=== PATIENT | male | born 1940 | race Caucasian/White ===

== ENCOUNTER 2021-07-30 02:34 | Outpatient (CLI) | payer MEDICARE, SELFPAY ==
--- OUTSIDE RECORDS SUMMARY | 2021-07-30 02:36 | XMS_ITS ---
:1940 Author Care Team Providers Name Role Phone SUSIE PRATT DO Primary Care Provider [phone] Allergies Code Code System Name Reaction Severity Status Onset NKDA ? Medications Name Status Start Date Stop Date ? ? amlodipine 10 mg tablet Completed 06/07/2016 06/08/20 16 1 (one) Tablet: every other day amlodipine 5 mg tablet Active ? Not avail able Take 1 tablet every day by oral route for 30 days. amoxicillin 500 mg capsule Completed ? 04/20 amoxicillin 875 mg tablet Completed 08/05/20112010 1 Tablet: bid - twice daily Augmentin 875 mg-125 mg tablet Completed ? 0 02/01/2021 Take 1 tablet every 12 hours by oral route for 7 days. azithromycin 250 mg tablet Completed ? 10/24 fluticasone propionate 50 mcg/actuation nasal spray,suspension A ctive ? Not available INSTILL 2 SPRAYS INTO EACH NOSTRIL EVERY MORNING lisinopril 40 mg tablet Active ? Not avai lable TAKE 1 TABLET BY MOUTH ONCE DAILY. metoprolol succinate ER 50 mg tablet,extended release 24 hr Acti ve ? Not available TAKE 1 TABLET BY MOUTH EVERY DAY rosuvastatin 10 mg tablet Completed ? 2020 TAKE 1 TABLET BY MOUTH EVERY OTHER DAY tamsulosin 0.4 mg capsule Active ? Not av ailable TAKE 1 CAPSULE BY MOUTH EVERY DAY Problems Name Status Onset Date Source ? Hyperlipidemia Active ? History Hypertensive Disorder Active ? History Acute Sinusitis Unknown ? History Acute Maxillary Sinusitis Unknown ? Histor y Seasonal Allergic Rhinitis Active ? Histo ry Posterior Rhinorrhea Active ? History Large Prostate Active ? History Heart Murmur Active ? History Delay When Starting to Pass Urine Active ? History Shadow of Lung Active ? History Exhaustion Due to Excessive Exertion Unknown ? History Active Immunization Unknown ? History Artificial Knee Joint Present Active ? Hi story Long-term Drug Therapy Active ? History Adult Health Examination Unknown ? History Knee Pain Active ? History Screening Procedure Unknown ? History Procedure by Method Unknown ? History Procedures Date Name Performed by ? 04/30/2015 Colonoscopy Information not avai lable Results Lab Results Date Name Specimen Result Interpretation Description Value Range Status Address ? 03/26/2021 CBC W/ Auto BLD ? Wbc 8.1 10*3/uL 5.0-10.0 F inal [place] Diff 10*3/uL [facility] (Internal) : [address] ? ? BLD ? Rbc 5.36 10*6/uL 4.60-6.00 Final N orth 10*6/uL [facility] (Internal) : [address] ? ? BLD ? Hgb 17.4 g/dL 14.0-18.0 Final Nort h g/dL [facility] (Internal) : [address] ? ? BLD ? Hct 51.0 % 41.0-51.0 Final [facility] (Internal) : [address] ? ? BLD ? Mcv 95.1 fL 80.0-96.0 Final [facility] (Internal) : [address] ? ? BLD High Mch 32.5 pg 26.0-32.0 Final [facility] (Internal) : [address] ? ? BLD ? Mchc 34.1 g/dL 31.0-35.0 Final Nort h g/dL [facility] (Internal) : [address] ? ? BLD ? Rdw 13.0 % 11.5-14.5 Final [facility] (Internal) : [address] ? ? BLD ? Plt 178 10*3/uL 130-450 Final Nort h 10*3/uL [facility] (Internal) : [address] ? ? BLD ? Anc 4.45 10*3/uL ? Final Nort h [facility] (Internal) : [address] ? ? BLD ? Nlr 1.61 0.00-3.20 Final [facility] (Internal) : [address] ? ? BLD ? Neutro 54.7 % 40.0-75.0 Final [facility] (Internal) : [address] ? ? BLD ? Lymph 34.1 % 20.0-50.0 Final [facility] (Internal) : [address] ? ? BLD ? Mclean 7.6 % 2.0-10.0 Final North % [facility] (Internal) : [address] ? ? BLD ? Eos 2.5 % 1.0-6.0 % Final [facility] (Internal) : [address] ? ? BLD ? Baso 1.0 % 0.0-1.0 % Final [facility] (Internal) : [address] ? ? BLD ? Ig 0.1 % 0.0-0.9 % Final [facility] (Internal) : [address] t 03/26/2021 CMP, Serum S ? g/r 76 mg/dL 74-106 Final North or Plasma mg/dL [facility] (Internal[facility] : [address] ? ? S ? Bun 14 mg/dL 9-20 Final [place] mg/dL [facility] (Internal) : [address] ? ? S ? Crea 0.70 mg/dL 0.66-1.25 Final Nor th mg/dL [facility] (Internal) : [address] ? ? S ? Ca 9.5 mg/dL 8.4-10.2 Final North mg/dL [facility] (Internal) : [address] ? ? S ? Na 145 mmol/L 137-145 Final North mmol/L [facility] (Internal) : [address] ? ? S ? K 3.9 mmol/L 3.5-5.1 Final [place] mmol/L [facility] (Internal) : [address] ? ? S ? Cl 106 mmol/L 98-107 Final [place] mmol/L [facility] (Internal[facility] : [address] ? ? S ? Tco2 27.0 mmol/L 22.0-30.0 Final No rth mmol/L [facility] (Internal[facility] : [address] ? ? S ? Tp 7.7 g/dL 6.3-8.2 Final North g/dL [facility] (Internal) : [address] ? ? S ? Alb 4.5 g/dL 3.5-5.0 Final [place] g/dL [facility] (Internal) : [address] ? ? S ? Tbil 0.8 mg/dL 0.2-1.3 Final [place] mg/dL [facility] (Internal) : [address] ? ? S ? Alp 61 U/L 38-126 Final [place] U/L [facility] (Internal) : [address] ? ? S Low Alt 13 U/L 21-72 U/L Final [place] (Sgpt) [facility] (Internal) : [address] ? ? S ? Ast 31 U/L 17-59 U/L Final [place] (Sgot) [facility] (Internal) : [address] 03/16/2021 CBC W/ Auto BLD ? Wbc 7.9 10*3/uL 5.0-10.0 F inal [place] Diff 10*3/uL [facility] (Internal) : [address] ? ? BLD ? Rbc 5.22 10*6/uL 4.60-6.00 Final N orth 10*6/uL [facility] ([facility] : [address] ? ? BLD ? Hgb 16.9 g/dL 14.0-18.0 Final Nort h g/dL [facility] (Internal) : [address] ? ? BLD ? Hct 49.0 % 41.0-51.0 Final [place] % [facility] (Internal) : [address] ? ? BLD ? Mcv 93.9 fL 80.0-96.0 Final [place] fL [facility] (Internal) : [address] ? ? BLD High Mch 32.4 pg 26.0-32.0 Final [place] pg [facility] (Internal) : [address] ? ? BLD ? Mchc 34.5 g/dL 31.0-35.0 Final Nort h g/dL [facility] (Internal) : [address] ? ? BLD ? Rdw 12.9 % 11.5-14.5 Final [facility] L ab (Internal) : [address] ? ? BLD ? Plt 172 10*3/uL 130-450 Final Nort h 10*3/uL [facility] (Internal) : [address] ? ? BLD ? Anc 4.95 10*3/uL ? Final Nort h [facility] (Internal) : [address] ? ? BLD ? Nlr 2.51 0.00-3.20 Final [facility] (Internal) : [address] ? ? BLD ? Neutro 62.5 % 40.0-75.0 Final [facility] (Internal) : [address] ? ? BLD ? Lymph 24.9 % 20.0-50.0 Final [facility] (Internal) : [address] ? ? BLD ? Mclean 9.1 % 2.0-10.0 Final [facility] (Internal) : [address] ? ? BLD ? Eos 2.4 % 1.0-6.0 % Final [facility] (Internal) : [address] ? ? BLD ? Baso 0.8 % 0.0-1.0 % Final [facility] (Internal) : [address] ? ? BLD ? Ig 0.3 % 0.0-0.9 % Final [facility] (Internal) : [address] 03/16/2021 CMP, Serum S ? g/r 95 mg/dL 74-106 Final North or Plasma mg/dL [facility] (Internal) : [address] ? ? S ? Bun 16 mg/dL 9-20 Final [place] mg/dL [facility] (Internal) : [address] ? ? S ? Crea 0.70 mg/dL 0.66-1.25 Final [place] mg/dL [facility] ([facility] : [address] ? ? S ? Ca 9.8 mg/dL 8.4-10.2 Final [place] mg/dL [facility] (Internal[facility] : [address] ? ? S ? Na 142 mmol/L 137-145 Final [place] mmol/L [facility] (Internal) : [address] ? ? S ? K 4.2 mmol/L 3.5-5.1 Final [place] mmol/L [facility] (Internal) : [address] ? ? S ? Cl 104 mmol/L 98-107 Final [place] mmol/L [facility] (Internal) : [address] ? ? S ? Tco2 28.0 mmol/L 22.0-30.0 Final No rth mmol/L [facility] (Internal) : [address] ? ? S ? Tp 6.9 g/dL 6.3-8.2 Final [place] g/dL [facility] (Internal) : [address] ? ? S ? Alb 4.3 g/dL 3.5-5.0 Final [place] g/dL [facility] (Internal) : [address] ? ? S ? Tbil 0.9 mg/dL 0.2-1.3 Final [place] mg/dL [facility] (Internal) : [address] ? ? S ? Alp 63 U/L 38-126 Final [place] U/L [facility] (Internal) : [address] ? ? S Low Alt 13 U/L 21-72 U/L Final [place] (Sgpt) [facility] (Internal) : [address] ? ? S ? Ast 37 U/L 17-59 U/L Final [place] (Sgot) [facility] (Internal) : [address] 03/16/2021 TSH, Serum S ? Tsh 1.25 0.47-4.68 Final North or Plasma u[IU]/mL u[IU]/mL [facility] : [address] 03/16/2021 Venipuncture Blood ? Location Left ? ? P_nc Primary venous Antecubital Care [place]: [address], [place] ? ? Blood ? Needle 21g ? ? P_nc Prim ann venous Vacutainer Care [place]: [address], [place] ? ? Blood ? Number of 1 ? ? P_nc P rimary venous Attempts Care [place]: [address], [place] ? ? Blood ? Successfu Yes ? ? P_nc P rimary venous l Care [place]: [address], [place] ? ? Blood ? Dressing Pressure ? ? P_nc Primary venous Band-aid Care Applied [place]: [address], [place] 03/05/2021 Borrelia S ? Lyme negative negative Final [place] [facility] Lab Immunoassay, (Int ernal): Serum [address] 07/21/2020 Lipid Panel, S ? Chol 183 mg/dL 50-200 Rosa Maria l [place] Serum mg/dL [facility] (Internal) : [address] ? ? S ? Trig 118 mg/dL 10-150 Final [place] mg/dL [facility] (Internal) : [address] ? ? S High Hdl 67 mg/dL 40-60 Final [place] mg/dL [facility] (Internal) : [address] ? ? S ? Ldl 92 mg/dL 0-130 Final [place] mg/dL [facility] (Internal) : [address] 06/03/2020 Lipid Panel, S ? Chol 188 mg/dL 50-200 Rosa Maria l [place] Serum mg/dL [facility] (Internal) : [address] ? ? S ? Trig 79 mg/dL 10-150 Final [place] mg/dL [facility] (Internal) : [address] ? ? S High Hdl 72 mg/dL 40-60 Final [place] mg/dL [facility] (Internal) : [address] ? ? S ? Ldl 100 mg/dL 0-130 Final [place] mg/dL [facility] (Internal) : [address] 10/30/2019 CK (Creatine S Low Cpk 38 U/L 55-170 Final North Kinase), U/L [facility] Total, Serum Hosp ital Lab (Internal) : [address] 10/30/2019 CMP, Serum S ? g/r 88 mg/dL 74-106 Final [place] or Plasma mg/dL [facility] (Internal) : [address] ? ? S ? Bun 18 mg/dL 9-20 Final [place] mg/dL [facility] (Internal) : [address] ? ? S ? Crea 0.80 mg/dL 0.66-1.25 Final Nor th mg/dL [facility] (Internal) : [address] ? ? S ? Ca 9.3 mg/dL 8.4-10.2 Final [place] mg/dL [facility] (Internal) : [address] ? ? S ? Na 140 mmol/L 137-145 Final [place] mmol/L [facility] (Internal) : [address] ? ? S ? K 4.0 mmol/L 3.5-5.1 Final [place] mmol/L [facility] (Internal) : [address] ? ? S ? Cl 103 mmol/L 98-107 Final [place] mmol/L [facility] (Internal) : [address] ? ? S ? Tco2 28.0 mmol/L 22.0-30.0 Final No rth mmol/L [facility] (Internal) : [address] ? ? S ? Tp 6.9 g/dL 6.3-8.2 Final [place] g/dL [facility] (Internal) : [address] ? ? S ? Alb 4.0 g/dL 3.5-5.0 Final [place] g/dL [facility] (Internal) : [address] ? ? S ? Tbil 0.6 mg/dL 0.2-1.3 Final [place] mg/dL [facility] (Internal) : [address] ? ? S ? Alp 67 U/L 38-126 Final [place] U/L [facility] (Internal) : [address] ? ? S Low Alt 12 U/L 21-72 U/L Final [place] (Sgpt) [facility] (Internal) : [address] ? ? S ? Ast 23 U/L 17-59 U/L Final [place] (Sgot) [facility] (Internal) : [address] 10/30/2019 CBC W/ Auto BLD ? Wbc 7.2 10*3/uL 5.0-10.0 F inal [place] Diff 10*3/uL [facility] (Internal[facility] : [address] ? ? BLD ? Rbc 5.09 10*6/uL 4.60-6.00 Final N orth 10*6/uL [facility] (Internal[facility] : [address] ? ? BLD ? Hgb 16.0 g/dL 14.0-18.0 Final Nort h g/dL [facility] (Internal) : [address] ? ? BLD ? Hct 47.3 % 41.0-51.0 Final [facility] L ab (Internal) : [address] ? ? BLD ? Mcv 92.9 fL 80.0-96.0 Final [facility] (Internal) : [address] ? ? BLD ? Mch 31.4 pg 26.0-32.0 Final [place] pg [facility] (Internal) : [address] ? ? BLD ? Mchc 33.8 g/dL 31.0-35.0 Final Nort h g/dL [facility] (Internal) : [address] ? ? BLD ? Rdw 12.3 % 11.5-14.5 Final North [facility] ab (Internal) : [address] ? ? BLD ? Plt 194 10*3/uL 130-450 Final Nort h 10*3/uL [facility] (Internal) : [address] ? ? BLD ? Anc 3.69 10*3/uL ? Final Nort h [facility] (Internal) : [address] ? ? BLD ? Neutro 51.2 % 40.0-75.0 Final [facility] (Internal) : [address] ? ? BLD ? Lymph 35.9 % 20.0-50.0 Final [facility] (Internal) : [address] ? ? BLD ? Mclean 7.8 % 2.0-10.0 Final [facility] (Internal) : [address] ? ? BLD ? Eos 3.7 % 1.0-6.0 % Final [facility] (Internal) : [address] ? ? BLD ? Baso 1.0 % 0.0-1.0 % Final [facility] (Internal) : [address] ? ? BLD ? Ig 0.4 % 0.0-0.9 % Final [facility] (Internal) : [address] 10/30/2019 Thyroid S ? Tsh 1.64 0.47-4.68 Final No rth [place], u[IU]/mL u[IU]/mL [facility] (Internal) : [address] 04/13/2018 CMP, Serum S - g/r 90 mg/dL 74-106 Final North or Plasma mg/dL [facility] (Internal) : [address] ? ? S - Bun 16 mg/dL 9-20 Final [place] mg/dL [facility] (Internal) : [address] ? ? S - Crea 0.70 mg/dL 0.66-1.25 Final Nor th mg/dL [facility] (Internal) : [address] ? ? S - Ca 9.1 mg/dL 8.4-10.2 Final [place] mg/dL [facility] (Internal) : [address] ? ? S - Na 140 mmol/L 137-145 Final [place] mmol/L [facility] (Internal) : [address] ? ? S - K 4.1 mmol/L 3.5-5.1 Final [place] mmol/L [facility] (Internal) : [address] ? ? S - Cl 105 mmol/L 98-107 Final [place] mmol/L [facility] (Internal) : [address] ? ? S - Tco2 29.0 mmol/L 22.0-30.0 Final No rth mmol/L [facility] (Internal) : [address] ? ? S - Tp 7.0 g/dL 6.3-8.2 Final [place] g/dL [facility] (Internal) : [address] ? ? S - Alb 4.3 g/dL 3.5-5.0 Final [place] g/dL [facility] (Internal) : [address] ? ? S - Tbil 0.9 mg/dL 0.2-1.3 Final [place] mg/dL [facility] (Internal) : [address] ? ? S - Alp 54 U/L 38-126 Final [place] U/L [facility] (Internal) : [address] ? ? S - Alt 21 U/L 21-72 U/L Final North (Sgpt) [facility] (Internal) : [address] ? ? S - Ast 30 U/L 17-59 U/L Final [place] (Sgot) [facility] (Internal) : [address] 04/13/2018 Lipid Panel, S - Chol 188 mg/dL 50-200 Rosa Maria l [place] Serum mg/dL [facility] (Internal) : [address] ? ? S - Trig 75 mg/dL 10-150 Final [place] mg/dL [facility] (Internal) : [address] ? ? S High Hdl 68 mg/dL 40-60 Final [place] mg/dL [facility] (Internal) : [address] ? ? S - Ldl 105 mg/dL 0-130 Final [place] mg/dL [facility] (Internal) : [address] 04/13/2018 PSA, Serum S - PSA, 0.2 NG/mL 0.0-4.0 Final North or Plasma Total NG/mL [facility] (Internal) : [address] Past Encounters 07/15/2021 Pre-surgery Evaluation; Essential Hypert ension Susie Pratt, DO: [address], [place] [address], Ph. 07/07/2021 Adult Health Examination; Hypertensive D isorder Susie Pratt, DO: [address], [place] [address], Ph. 04/14/2021 Hypertensive Disorder Susie Pratt, DO: [address], [place] [address], Ph. 03/16/2021 Malaise and Fatigue Susie Pratt, DO: [address], [place] [address], Ph. 02/09/2021 Susie Pratt, DO: [address], [place] [address], Ph. 02/01/2021 Impacted Cerumen in Right Ear; Bilateral Hearing Loss Yue Ralph, [employer]: [address] [facility] [place] [address], Ph. 06/17/2020 Adult Health Examination; Hyperlipidemia Susie Pratt, DO: [address], [place] [address], Ph. Social History Tobacco Smoking Status Never Smoker Vaccine List Vaccine Type COVID-19, mRNA, LNP-S, PF, 100 mcg/0.5 m L dose (Moderna) 09/23/2020 10/21/2020 06/28/2021 influenza, high dose seasonal 07/12/2017?0.5 mL 05/24/2018?0.5 mL 05/30/2019?0.5 mL influenza, high-dose, quadrivalent 05/20/2020 05/22/2021 influenza, seasonal, injectable 06/11/2008 08/13/2009 05/31/2010?0.5 mL 05/13/2011 influenza, seasonal, injectable, preserv ative free 05/21/2012?0.5 mL 05/22/2013?0.5 mL 05/21/2014?0.5 mL 06/12/2015?0.5 mL 06/09/2016?0.5 mL pneumococcal conjugate PCV 13 12/02/2016?0.5 mL 07/12/2017?0.5 mL pneumococcal polysaccharide PPV23 09/09/2014?0.5 mL Tdap 04/01/2011?0.5 mL Plan of Care Reminders Provider Appointments None ? ? recorded. Lab None ? ? recorded. Referral None ? ? recorded. Procedures None ? ? recorded. Surgeries None ? ? recorded. Imaging None ? ? recorded. Vitals 07/15/2021 10:00AM Follow Up 20 Height Weight BMI Blood Pressure 175.26 cm 67.54 kg 22 kg/m2 (1) 152/92 mm[H g] (2) 120/82 mm[Hg ] 07/07/2021 03:00PM AWV 20 Height Weight BMI Blood Pressure 175.26 cm 65.77 kg 21.4 kg/m2 160/94 mm[Hg] 04/14/2021 11:00AM Follow Up 20 Height Weight BMI Blood Pressure 175.26 cm 71.67 kg 23.3 kg/m2 158/98 mm[Hg] 03/16/2021 10:20AM Acute 20 Height Weight BMI Blood Pressure 175.26 cm 70.76 kg 23 kg/m2 134/84 mm[Hg] 02/01/2021 01:40PM Follow Up 20 Height Weight BMI Blood Pressure 175.26 cm 71.67 kg 23.3 kg/m2 (1) 148/84 mm[H g] (2) 126/82 mm[Hg ] 06/17/2020 12:40PM AWV 20 Height Weight BMI Blood Pressure 175.26 cm 70.76 kg 23 kg/m2 132/82 mm[Hg] 11/07/2019 09:40AM Follow Up 20 Height Weight BMI Blood Pressure 175.26 cm 73.48 kg 23.9 kg/m2 134/88 mm[Hg] 06/05/2019 12:40PM AWV 20 Height Weight BMI Blood Pressure 175.26 cm 70.76 kg 23 kg/m2 134/80 mm[Hg] 11/29/2018 09:40AM Acute 20 Height Weight BMI Blood Pressure 175.26 cm 74.39 kg 24.2 kg/m2 126/76 mm[Hg] 10/24/2018 10:00AM Acute 20 Height Weight BMI Blood Pressure 175.26 cm 73.94 kg 24.1 kg/m2 144/94 mm[Hg] 06/11/2018 02:00PM Follow Up 20 Height Weight BMI Blood Pressure 175.26 cm 71.21 kg 23.2 kg/m2 150/102 mm[Hg] 04/20/2018 02:00PM AWV 20 Height Weight BMI Blood Pressure 175.26 cm 71.21 kg 23.2 kg/m2 140/86 mm[Hg] 12/02/2016 Height Weight Blood Pressure 175.26 cm 73.48 kg 168/100 mm[Hg] 06/08/2016 Weight Blood Pressure 69.85 kg 150/88 mm[Hg] 03/29/2016 Height Weight Blood Pressure 175.26 cm 73.03 kg 140/80 mm[Hg] 12/24/2015 Weight Blood Pressure 72.72 kg 120/90 mm[Hg] 10/27/2015 Weight Blood Pressure 73.26 kg (1) 176/100 mm[Hg] (2) 154/90 mm[Hg] 04/30/2015 Height Weight Blood Pressure 175.26 cm 71.67 kg 156/96 mm[Hg] 03/03/2015 Weight Blood Pressure 71.89 kg 144/84 mm[Hg] 06/10/2013 Weight Blood Pressure 72.57 kg 118/72 mm[Hg] 02/26/2013 Height Weight Blood Pressure 172.72 cm 72.57 kg 128/76 mm[Hg] 11/26/2012 Weight Blood Pressure 73.03 kg 140/90 mm[Hg] 08/05/2011 Height Weight Blood Pressure 177.8 cm 70.76 kg 140/80 mm[Hg] 04/01/2011 Weight Blood Pressure 68.49 kg 130/80 mm[Hg] 09/15/2010 Weight Blood Pressure 72.57 kg 128/64 mm[Hg] 03/30/2010 Height Weight 177.8 cm 66.22 kg 03/15/2010 Weight Blood Pressure 68.95 kg 150/80 mm[Hg] 09/10/2009 Weight Blood Pressure 72.12 kg 140/80 mm[Hg] 04/01/2009 Weight Blood Pressure 69.4 kg 132/80 mm[Hg] 03/04/2009 Weight Blood Pressure 69.4 kg 138/88 mm[Hg] 09/09/2008 Weight Blood Pressure 73.94 kg 130/80 mm[Hg] 06/26/2008 Weight Blood Pressure 72.12 kg 136/84 mm[Hg] 02/26/2008 Weight Blood Pressure 71.44 kg 118/74 mm[Hg] 01/02/2008 Weight Blood Pressure 73.48 kg 122/74 mm[Hg] 12/12/2007 Weight Blood Pressure 73.94 kg 130/68 mm[Hg] 08/01/2007 Weight Blood Pressure 72.12 kg 118/74 mm[Hg]
--- OUTSIDE RECORDS SUMMARY | 2021-07-30 02:37 | XMS_ITS | Encounter Summary ---
:1940 Author Care Team Providers Name Role Phone Elliot Gavin DO Primary Care Provider [phone] Reason for Visit Medicare annual wellness visit- male Assessment and Plan 1. Adult health examination Health maintenance exam: Relat ively healthy person - preventive medicine discussed. Labs reviewed. No concerns re garding risk of falls, depression, home support. 2. Hypertensive disorder Blood pressure remains slightl y elevated. It goes up while he is in the office. He has whitecoat hypertension ho wever he does a good job of keeping his home readings and they are generally above 14 0/90. Trial of amlodipine. He will keep his blood pressures and let me know in a wee k's time whether is working. Does have a follow-up appointment in later June for preop for cataracts at which point we can discuss his blood pressures in more deta il and make the necessary changes as needed. ? amlodipine 5 mg tablet Discussion Note: None recorded.Patient educational handouts: No information available. Plan of Care Reminders Provider Appointments Awv 20 07/12/2022 Elliot Gavin, 2:00PM DO Lab None ? ? recorded. Referral None ? ? recorded. Procedures None ? ? recorded. Surgeries None ? ? recorded. Imaging None ? ? recorded. Medications Name Start Date ? ? amlodipine 5 mg tablet ? Take 1 tablet every day by oral route for 30 days. fluticasone propionate 50 mcg/actuation nasal spray,ca spension ? INSTILL 2 SPRAYS INTO EACH NOSTRIL EVERY MORNING lisinopril 40 mg tablet ? TAKE 1 TABLET BY MOUTH ONCE DAILY. metoprolol succinate ER 50 mg tablet,extended release 24 hr ? TAKE 1 TABLET BY MOUTH EVERY DAY tamsulosin 0.4 mg capsule ? TAKE 1 CAPSULE BY MOUTH EVERY DAY Medications Administered None recorded. Vitals Height Weight BMI Blood Pressure 5 ft 9 in 144 lbs 16 oz 21.4 kg/m2 160/94 mm[Hg] Results Lab Results None recorded. Allergies Code Code System Name Reaction Severity Onset NKDA ? ? ? Problems Name Status Onset Date Source ? Hyperlipidemia Active ? History Hypertensive Disorder Active ? History Seasonal Allergic Rhinitis Active ? Histo ry Posterior Rhinorrhea Active ? History Large Prostate Active ? History Heart Murmur Active ? History Delay When Starting to Pass Urine Active ? History Shadow of Lung Active ? History Artificial Knee Joint Present Active ? Hi story Long-term Drug Therapy Active ? History Knee Pain Active ? History Procedures Date Name Performed by ? 04/30/2015 Colonoscopy Information not avai lable Vaccine List Vaccine Type COVID-19, mRNA, LNP-S, [...] polysaccharide PPV23 09/09/2014?0.5 mL Tdap 04/01/2011?0.5 mL Social History Tobacco Smoking Status Never Smoker What was the date of your most recent tobacco screening? 02/2021 What is your code status? 0 Functional Status Unknown. Past Encounters 07/07/2021 Adult Health Examination; Hypertensive Caro morserder Elliot Gavin, DO: [address] [facility], [place] [address], Ph. History of Present Illness ? Medicare Annual Wellness Vis it_ Reported By: Patient Social/Behavioral History: Diet and Nutrition: healthy diet. Fracture Risk: no sudden unexplained fractures. Physi fam Activity: exercises on a regular basis, good physical condition Mental Status:: Depression Risk: no sleep di sturbances or insomnia, loss of energy. Orientation: no d isorientation to time, no disorientation to date, no d isorientation to place. Concentration and Memory: no decreased concentrating ability, does not forget wor ds. Speech/Motor difficulties: no speech difficulties, no d ifficulty writing/copying Functional Ability: Hearing: wears hearing aids. Vision: no vision problems. Activities of Daily Living: able to bathe with limited or no assistance, able to conto l urination and bowels, able to dress with limited or no assistance, able to feed self with limited or no assistanc e, able to get out of chair or bed with limited or no angela tance, able to groom with limited or no assistance, ab le to toilet with limited or no assistance. Instrumental Activities of Daily Living: able to do house work with l imited or no assistance, able to grocery shop with limited or no assistance, able to manage medications with limi corey or no assistance, able to manage money with limited or no assistance, able to prepare meals with limited o r no assistance, able to use the phone with limited or no assistance. Falls Risk Assessment: no fall in the p ast year, no dizziness/vertigo. Home Safe ty: working smoke/CO detectors, use of seatbelts Review of Systems ? Comprehensive General Adult ROS Reported By: Patient Eyes: Eyes: no dry eyes, no irrita tion ENMT: Mouth/Throat: no sore throat , no oral abnormalities Cardiovascular: Cardiovascular: no chest jacob n, no shortness of breath when walking, no shortness of frances ath when lying down, no palpitations Respiratory: Respiratory: no cough, no wh eezing, no shortness of breath Gastrointestinal: Gastrointestinal: no abdomin al pain, no constipation, no diarrhea, no GERD Genitourinary: Genitourinary: no incontinen ce, no difficulty urinating, no increased frequency Musculoskeletal: Musculoskeletal: no arthralg ias/joint pain, no back pain, no swelling in the extremities Integumentary: Skin: no rashes, no change i n skin color Neurologic: Neurologic: no numbness, no headaches Psychiatric: Psych: no depression, no anx iety, no memory loss, no agitation Endocrine: Endocrine: no fatigue Hematologic/Lymphatic: Hematologic/Lymphatic no swo llen glands, no anemia Allergic/Immunologic: Allergy/Immunologic: no sinu s pressure, no itching, no hives Physical Exam ? Comprehensive PE (male) Reported By: Patient Constitutional: General Appearance: healthy- appearing, well-nourished, well-developed. Level of Dis tress: no apparent distress. Ambulation: ambulating gutierrez lly Head: Head: normocephalic, atrauma tic Eyes: Pupils & Irises: PERRLA: bot h. Extraocular Movement: intact left eye, intact right eye. Visio n: peripheral vision grossly intact, acuity grossly intact ENMT: Ears: no lesions on external left ear, no lesions on external right ear, left external auditory canal clear, right external auditory canal clear, left tympanic m embrane clear, right tympanic membrane clear. Hearing: no hearing l oss right ear, no hearing loss left ear, Rivera's test left ear n ormal, Rivera's test right ear normal, Rinne's test normal . Nose: no lesions on external nose, nares patent, no septal deviation, no sinus tenderness, no nasal discharge. Lips, Teeth, and Gums: no mouth or lip ulcers, no bleeding gums, normal dentit ion. Oropharynx: moist mucous membranes, no erythema, no e xudates, tonsils not enlarged Neck: Neck: supple, trachea midlin e, no masses, full range of motion. Thyroid: no enlargement, sym metrical, non-tender, no palpable nodes Respiratory: Respiratory effort: unlabore d respirations, no use of accessory muscles. RUL Auscultation: b reath sounds normal, good air movement, clear to auscultation except as noted, no wheezing, no rales/crackles, no rhonchi. RLL Auscultation: breath sounds normal, good air movement, clear to auscultation except as noted, no wheezing, no rales/crackles, no rhonchi. RON Auscultation: breath sounds normal, good air move ment, clear to auscultation except as noted, no wheezing, no rales /crackles, no rhonchi. LLL Auscultation: breath sounds normal, good air movement, clear to auscultation except as noted , no wheezing, no rales/crackles, no rhonchi Cardiovascular: Apical Impulse: not displace d. Heart Auscultation: regular rate and rhythm (RRR), normal S1, nor mal S2, no murmurs, no rubs, no gallops. Neck vessels: no ca rotid bruits. Pulses including femoral / pedal: normal throughout Lymphatic: Palpation: no axillary lymph adenopathy on the left, no axillary lymphadenopathy on the right , no cervical lymphadenopathy on the left, no cervical lymphadeno jesse on the right, no supraclavicular lymphadenopathy on the left, no supraclavicular lymphadenopathy on the right, no inguinal lymph adenopathy on the left, no inguinal lymphadenopathy on the right Musculoskeletal:: Gait and Station: normal gai t, normal station. Motor Strength and Tone: normal tone. Joints, B ones, and Muscles: normal movement of all extremities, no contract ures, no bony abnormalities, no malalignment, no tenderness, no joint erythema, no joint edema. Extremities: no edema. Thora columbar Appearance: normal curvature Skin: Inspection and palpation: no rash. Nails: normal Neurologic: Orientation: oriented to per son, place, time and situation. Memory: recent memory normal, remote memory normal. Cranial Nerves: 2-12 grossly intact. Sensation: g rossly intact, monofilament test intact. Reflexes: deep tendo n reflexes (DTRs) 2+bilaterally. Coordination and Cerebellum: [id number]-[id number] intact, no tremor, negative Romberg Psychiatric: Insight: good insight, good judgment. Mental Status: normal mood, normal affect Notes: <div>
</div>
--- OUTSIDE RECORDS SUMMARY | 2021-07-30 02:37 | XMS_ITS | Encounter Summary ---
:1940 Author Care Team Providers Name Role Phone Elliot Leslye BILLINGS Primary Care Provider [phone] Reason for Visit pre-op check Assessment and Plan 1. Pre-surgery evaluation Healthy elderly male who is at low cardiac and respiratory risk and so should proceed with cataract surgery. 2. Essential hypertension Improved with 5 mgs of amlodip ine- he will double and to 10 mgs , keep bp logs and call with results. Discussion Note: None recorded.Patient educational handouts: No information available. Plan of Care Reminders Provider Appointments Awv 20 07/12/2022 Elliot Darden Gavin, 2:00PM DO Lab None ? ? [...] BMI Blood Pressure 5 ft 9 in 148 lbs 14.36 oz 22 kg/m2 (1) 152/92 mm [Hg] (2) 120/82 mm[Hg ] Results Lab Results None recorded. Allergies Code [...] status? 0 Functional Status Unknown. Past Encounters 07/15/2021 Pre-surgery Evaluation; Essential Hypert ension Elliot Gavin, DO: [address] [place] [address], Ph. 07/07/2021 Adult Health Examination; Hypertensive D isorder Elliot Gavin, DO: [address] [facility], [place] [address], Ph. History of Present Illness ? Pre-Op Reported By: Patient HPI: Surgery to be Performed: ; C ataract surgery. Context/Condition Being Addressed: ; Eyesight. Locat ion: ; Dr. Limon on 07/30 and 08/09 2021. Risk Factors no frailty, abl e to climb a flight of stairs (exercise capacity>4 METS), non-smoker , no alcohol misuse, not obese. Anesthesia hx: no hx of anesthesia comp lications, no allergy to anesthetic agents, no family history of anesthe kenia complications. Functional Ability: able to walk up stairs, able to p erform heavy work around the house, no difficulty walking up hills, able to walk 4 mph. Post-Op Support: adequate assistance at home Review of Systems ? Comprehensive General Adult [...] n reflexes (DTRs) 2+bilaterally. Coordination and Cerebellum: uorirw-oo-xipu intact, no tremor, negative Romberg Psychiatric: Insight: good insight, good judgment. Mental Status: normal mood, normal affect Notes: <div>
</div>
[2021-07-30 12:23] LABS: Source Nasal/Nares
[2021-07-30 15:14] LABS: COVID-19 PCR Negative (Negative)
== END 2021-07-30 02:35 | disposition home or self-care (01) ==
LOC: LBO 02:34
PROVIDERS: PCP Neuromusculoskeletal Medicine & OMM; Visit Provider Ophthalmology
DX: Z20.822 Contact with and (suspected) exposure to COVID-19 (principal)
CPT/HCPCS: 87635

== ENCOUNTER 2021-08-02 09:35 | Day surgery (SDC) | payer MEDICARE, SELFPAY ==
[2021-08-02 10:02] VITALS: BP 147/86; PULSE 60; RESP 16; TEMP 36.3; O2SAT 98
[2021-08-02] MEDS: Tropicam./Phenyleph. (1/2.5%) 5 ML BTL OD ×3 (10:15→10:34)
--- NOTE | 2021-08-02 10:29 | W.ANESPRE ---
General Info Date of Service Date Performed: 08/02/21 Height: 5 ft 9 in Weight: 64.4 kg Body Mass Index (BMI): 20.9 Surgical Procedure: Operation Date: 08/02/21 12:40 Proposed Procedures Side Surgeon p Cataract Extraction with IOL Implant Right Forrest Limon MD Meds Allergies and Home Medications Allergies Allergy/AdvReac Type Severity Reaction Status Date / Time No Known Allergies Allergy Unverified 08/02/21 10:13 Home Medication Medication Instructions Recorded amlodipine 5 mg PO DAILY 07/30/21 fluticasone propionate 2 spray INTRANASAL QAM 07/30/21 lisinopril 40 mg PO DAILY 07/30/21 metoprolol succinate 50 mg PO DAILY 07/30/21 tamsulosin 0.4 mg PO DAILY 07/30/21 aspirin 81 mg PO DAILY 08/02/21 Current Visit Medications: Current Medications Generic Name Dose Route Start Last Admin Trade Name Freq PRN Reason Stop Dose Admin Acetaminophen 1,000 mg 08/02/21 06:00 Acetaminophen 500 Mg Tab PO Q4H PRN PRN Miscellaneous Medication 0 ml 08/02/21 06:00 Prednisolone 1%, Moxifloxacin 0.5%, Nepafenac 0.1% 5ml Btl OD DIRECTED LEONARD Miscellaneous Medication 0 ml 08/02/21 06:00 08/02/21 10:23 Tropicam./Phenyleph. (1/2.5%) 5 Ml Btl OD 1 drp DIRECTED LEONARD Administration Tetracaine HCl 0 ml 08/02/21 06:00 Tetracaine 0.5% 4 Ml Btl OD DIRECTED LEONARD PFSH Active Problems Active Problems: Problem Status Onset Code Cortical cataract of left eye H26.9 Nuclear sclerotic cataract of right eye H25.11 Nuclear sclerotic cataract of left eye H25.12 Medical History Active Problem List (Updated 08/02/21 @ 10:22 by Cheryle Burden) Cortical cataract of left eye (Acute) Nuclear sclerotic cataract of right eye (Acute) Nuclear sclerotic cataract of left eye (Acute) Medical History (Updated 08/02/21 @ 10:22 by Cheryle Burden) Enlarged prostate Heart murmur Hx of essential hypertension Knee pain Shadow of lung Urinary hesitancy Surgical History Surgical History Artificial knee joint present History of open reduction and internal fixation (ORIF) procedure right elbow Hx of colonoscopy Hx of tonsillectomy Hx of total knee replacement Tobacco Smoking/Tobacco Use Status: Never Alcohol Alcohol Intake: current Alcohol intake frequency: 0-2 drinks per day Alcohol type: wine Substance Use Substance use: Never Substance use type: does not use Vital Signs and Lab Results Vital Signs Most Recent Vital Signs in EMR: Most Recent Vital Signs Temp Pulse Resp BP Pulse Ox 36.3 C L 60 16 147/86 H 98 08/02/21 10:02 08/02/21 10:02 08/02/21 10:02 08/02/21 10:02 08/02/21 10:02 Lab Results Blood Type / Crossmatch: No Data to Display Complete Blood Count: No Data to Display Complete Metabolic Panel: No Data to Display Liver Function Panel: No Data to Display Coagulation Panel: No Data to Display Cardiac Panel: No Data to Display Arterial Blood Gas: No Data to Display Venous Blood Gas: No Data to Display Pancreas Panel: No Data to Display Thyroid Panel: No Data to Display Infectious Disease: Coronavirus (COVID-19)(PCR) Negative (Negative) 07/30/21 10:23 07/30/21 Coronavirus 2019 Source Nasal/Nares 07/30/21 10:23 07/30/21 Blood Cultures: No Data to Display Toxicology Panel: No Data to Display Anesthesia Assessment and Plan Anesthesia History Personal History: No History of Anesthesia Complications Family History: No Family History of Anesthesia Complications Exercise Tolerance Exercise Tolerance: Metabolic Equivalents>4 Pertinent Negatives Pertinent Negatives: No Symptoms of GERD, No Major Cardiovascular Symptoms or Complaints, No Major Pulmonary Symptoms or Complaints and No History of CVA/TIA Cardiac & Pulmonary Exam Cardiac Exam: Normal S1/S2 Heart Sounds Pulmonary Exam: Clear Bilateral Breath Sounds Implantable Cardiac Device Does patient have a Pacemaker or an ICD?: No Airway Exam Known Difficult Airway: No Mallampati Class: 3 Mouth Opening: Normal (> 3cm) Thyromental Distance: Greater than 3 cm Neck Range of Motion: Full ROM Neck Circumference: Normal Teeth Condition: Generalized Poor Dentition Airway Comments: No loose teeth ASA Classification ASA Score: ASA 2 Emergency Case?: No NPO Status NPO Status: NPO Clears >2 hours, Solids >8 hours Anesthesia Plan Resuscitation Status: Full Code Anesthesia Technique: MAC Anesthesia Airway Planned: Natural Airway Monitors Used: Standard Monitors
[2021-08-02 10:31] VITALS: BMI 20.9
[2021-08-02] MEDS: Lidocaine 2% Jelly 6 ML SYR (10:47)
[2021-08-02] MEDS: Tetracaine 0.5% 4 ML BTL OD (10:47)
[2021-08-02] MEDS: Povidone-Iodine Ophth 30 ML BTL (10:47)
[2021-08-02] MEDS: Balanced Salt Soln.-PLUS 500 ML BAG (10:59)
[2021-08-02] MEDS: Duovisc Viscoelastic System EACH 1 EACH (11:00)
--- NOTE | 2021-08-02 11:15 | PDOC.DSDIS_ITS ---
Discharge Plan Disposition Patient Disposition: HOME Condition: Good Discharge Details Attending Provider: Forrest Limon Primary Care Provider: Elliot Gavin [place] Meds and New Rx's Prescriptions: No Action metoprolol succinate 50 mg Tablet Extended Release 24 Hr 50 mg PO DAILY RF: 0 amlodipine 5 mg Tablet 5 mg PO DAILY RF: 0 tamsulosin 0.4 mg Capsule 0.4 mg PO DAILY RF: 0 lisinopril 40 mg Tablet 40 mg PO DAILY RF: 0 fluticasone propionate 50 mcg/actuation [place],Suspension 2 spray INTRANASAL QAM RF: 0 aspirin 81 mg Tablet 81 mg PO DAILY RF: 0 Discharge Instructions Stand Alone Forms: Post-op Topical Cataract, Karla Orozco (DSU) Discharge Orders Discharge Orders: Discharge Order (Routine); Ordered 08/02/21 Ordered By: Forrest Limon DS: Diagnosis Discharge Diagnosis (1) Nuclear sclerotic cataract of right eye: Status: Resolved (2) Cortical cataract of right eye: Status: Resolved
[2021-08-02 11:16] VITALS: BP 116/74; PULSE 55; RESP 16; TEMP 36.4; O2SAT 97
--- NOTE | 2021-08-02 11:16 | ROE_ITS ---
Date of service: 08/02/21 Time of Service: 11:16 Operative Note Operative Note DATE OF PROCEDURE: 08/02/21 PRE-OP DIAGNOSIS: Nuclear/cortical cataract, right eye High myopia, right eye POST-OP DIAGNOSIS: same PROCEDURE: Cataract extraction using phacoemulsification with intraocular lens implant, right eye SURGEON: Forrest Limon ANESTHESIA TYPE: Local By Surgeon and MAC Refer to Anesthesia Record ESTIMATED BLOOD LOSS: 0 PATHOLOGY: none sent COMPLICATIONS: None Patient was transported to: same day Patient's condition: stable Implants: Chad & Chad/DARRYL Tecnis [id number] Indications: Progressive visual loss due to cataract, right eye Procedure Description: CATARACT SURGERY OPERATIVE REPORT PREOPERATIVE DIAGNOSIS: 1. Nuclear/cortical cataract, right eye 2. High myopia, right eye POSTOPERATIVE DIAGNOSIS: Same OPERATION: 1. Cataract extraction using phacoemulsification with posterior chamber intraocular lens implant, right eye. IOL: IOL Supervisor Pipelines/Model: Chad & Chad / DARRYL Tecnis [id number] IOL Power: + 8.0 diopters IOL Serial Number: [id number] Optic Diameter: 6.0mm Haptic/Overall Diameter: 13.0mm PHACO INFO: [employer]ion Vision System with OZil and Active Fluidics Cumulative Dispersed Energy (CDE): 11.36 seconds SURGEON: Forrest Limon MD, COLT ANESTHESIA: Monitored Anesthesia Care (MAC), with local sub-tenon's anesthetic infiltration COMPLICATIONS: None SPECIMENS: None INDICATIONS FOR PROCEDURE: The patient is a 81-year-old gentleman with history of high myopia who has developed a symptomatic nuclear/cortical cataract of the right eye. The option of cataract surgery was offered to the patient and he felt he was symptomatic enough that he wished to proceed. PROCEDURE: The correct surgical eye was identified and marked as the right eye and the pupil was dilated in the preoperative area using mydriatics and cycloplegics. The dilated pupil size was 8.0 mm. He elected to proceed without oral sedation. The patient was brought to the operating room where cardiopulmonary monitoring was instituted and surgical time-out was performed, confirming the correct operative eye and IOL power. Topical anesthesia was administered and ophthalmic povidone-iodine 5% was instilled into the conjunctival fornices. Lidocaine gel was applied to the cornea and the tram-ocular area was prepped with Betadine 10% solution and draped in the usual sterile fashion for intraocular surgery, including an aperture drape. A Tegaderm transparent film dressing was cut in half and used to cover the lashes and lid margins. Care was taken to sequester the lashes and lid margins under the Tegaderm dressing. A lid speculum was placed between the lids of the operative eye and the Charles-Sudhir operating microscope was maneuvered into position. Valeriano scissors were then used to make a conjunctival buttonhole approximately 6mm posterior to the limbus in the inferonasal quadrant. Blunt dissection was carried out to expose bare sclera, and a blunt-tipped sub-tenon?s anesthesia cannula was introduced and passed posteriorly along the globe where non- preserved plain lidocaine was injected into posterior sub-Tenon?s space. A sideport knife was used to make a paracentesis port inferotemporally. Intraocular phenylephrine/lidocaine was injected into the anterior chamber. The anterior chamber was filled with viscoelastic. A 2.4mm keratome knife was used to create a half-thickness groove at the limbus and then to construct a three- plane near-clear corneal tunnel extending 2.0mm into clear cornea superiortemporally. A flap was raised on the anterior capsule and capsulorhexis forceps were used to complete a continuous curvilinear capsulorhexis of 5.5 mm. The capsule was noted to be extremely thin with a deep anterior chamber. Balanced salt solution was then used to perform cortical cleaving hydrodissection and nuclear hydrodelineation until the lens could be freely rotated within the capsular bag. The lens nucleus was then disassembled and removed within the capsular bag and iris plane using phacoemulsification. Residual cortical material was removed using the I/A handpiece. The posterior capsule was carefully polished to remove as much residual lens epithelial cells as safely possible. The capsular bag was then inflated and the anterior chamber deepened with viscoelastic. The lens implant described above was inserted into the capsular bag using the DARRYL [place] Injector. A Kuglen hook was used to dial the IOL into position. Residual viscoelastic was then removed first from posterior to the IOL, then from the anterior chamber using the I/A handpiece. The lens implant was noted to center nicely within the capsular bag. The incisions were stromally hydrated, and the anterior chamber was reformed using BSS. Then 0.5cc of moxifloxacin 1.0mg/ml were injected into the capsular bag and anterior chamber. The incisions were checked with a Weck spear and found to be secure. Several drops of ophthalmic povidone-iodine 5% were then applied to the eye followed by two drops of Imprimis combination prednisolone/moxifloxacin/nepafenac solution. The drapes were removed and a clear plastic protective eye shield was placed over the eye. The patient was then returned to Same Day Surgery in stable condition.
--- NOTE | 2021-08-02 11:36 | W.ANESPOSTOP ---
Postoperative Evaluation Date, Time and Location Date Performed: 08/02/21 Time Performed: 11:36 Patient Location: Day Surgery Unit Vital Signs Most Recent Imported Vital Signs: Most Recent Vital Signs Temp Pulse Resp BP Pulse Ox 36.4 C L 55 L 16 116/74 97 08/02/21 11:16 08/02/21 11:16 08/02/21 11:16 08/02/21 11:16 08/02/21 11:16 Pain Score Most Recent Pain Score: Most Recent Pain Score Pain Level 0 08/02/21 11:16 Assessment Mental Status: Awake (Alert & Oriented to Patient Baseline) Airway and Respiratory Function: Patent airway with normal (patient baseline) respiratory exam Cardiovascular Function: Hemodynamically Stable Hydration Status: Adequately Hydrated Nausea & Vomiting: No Nausea or Vomiting Pain: Pt. Denies Any Pain Peripheral Nerve Block: Patient did not receive a nerve block
== END 2021-08-02 12:37 | disposition home or self-care (01) ==
PROVIDERS: PCP Neuromusculoskeletal Medicine & OMM; Visit Provider Ophthalmology
PROC: (CPT 66984; principal; 2021-08-02 12:30)
DX: H25.11 Age-related nuclear cataract, right eye (principal); I10 Essential (primary) hypertension; N40.0 Benign prostatic hyperplasia without lower urinary tract symptoms
CPT/HCPCS: 66984; V2632

== ENCOUNTER 2021-08-06 10:44 | Outpatient (CLI) | payer MEDICARE, SELFPAY ==
[2021-08-06 15:14] LABS: Source Nasal/Nares
[2021-08-07 00:36] LABS: COVID-19 PCR Negative (Negative)
== END 2021-08-06 10:45 | disposition home or self-care (01) ==
LOC: LBO 10:45
PROVIDERS: PCP Neuromusculoskeletal Medicine & OMM; Visit Provider Ophthalmology
DX: Z20.822 Contact with and (suspected) exposure to COVID-19 (principal); Z01.818 Encounter for other preprocedural examination
CPT/HCPCS: 87635

== ENCOUNTER 2021-08-09 08:46 | Day surgery (SDC) | payer MEDICARE, SELFPAY ==
[2021-08-09 09:14] VITALS: BP 139/86; PULSE 47; RESP 16; TEMP 36.5; O2SAT 99
[2021-08-09] MEDS: Tropicam./Phenyleph. (1/2.5%) 5 ML BTL OS ×3 (09:24→09:35)
--- NOTE | 2021-08-09 09:46 | W.ANESPRE ---
General Info Date of Service Date Performed: 08/09/21 Height: 5 ft 9 in Weight: 66.3 kg Body Mass Index (BMI): 21.6 Surgical Procedure: Operation Date: 08/09/21 11:40 Proposed Procedures Side Surgeon p Cataract Extraction with IOL Implant Left Forrest Limon MD Meds Allergies and Home Medications Allergies Allergy/AdvReac Type Severity Reaction Status Date / Time No Known Allergies Allergy Unverified 08/09/21 09:20 Home Medication Medication Instructions Recorded amlodipine 5 mg PO DAILY 07/30/21 fluticasone propionate 2 spray INTRANASAL QAM 07/30/21 lisinopril 40 mg PO DAILY 07/30/21 metoprolol succinate 50 mg PO DAILY 07/30/21 tamsulosin 0.4 mg PO DAILY 07/30/21 aspirin 81 mg PO DAILY 08/02/21 Current Visit Medications: Current Medications Generic Name Dose Route Start Last Admin Trade Name Freq PRN Reason Stop Dose Admin Acetaminophen 1,000 mg 08/09/21 06:00 Acetaminophen 500 Mg Tab PO Q4H PRN PRN Miscellaneous Medication 0 ml 08/09/21 06:00 Prednisolone 1%, Moxifloxacin 0.5%, Nepafenac 0.1% 5ml Btl OS DIRECTED LEONARD Miscellaneous Medication 0 ml 08/09/21 06:00 08/09/21 09:35 Tropicam./Phenyleph. 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.11 Nuclear sclerotic cataract of left eye H25.12 Cortical cataract of right eye H26.9 Medical History Medical History Enlarged prostate Heart murmur Hx of essential hypertension Knee pain Shadow of lung Urinary hesitancy Surgical History Surgical History Artificial knee joint present History of open reduction and internal fixation (ORIF) procedure right elbow Hx of cataract surgery Hx of colonoscopy Hx of tonsillectomy Hx of total knee replacement Tobacco Smoking/Tobacco Use Status: Never Alcohol Alcohol Intake: current Alcohol intake frequency: 0-2 drinks per day Alcohol type: wine Substance Use Substance use: Never Substance use type: does not use Vital Signs and Lab Results Vital Signs Most Recent Vital Signs in EMR: Most Recent Vital Signs Temp Pulse Resp BP Pulse Ox 36.5 C 47 L 16 139/86 99 08/09/21 09:14 08/09/21 09:14 08/09/21 09:14 08/09/21 09:14 08/09/21 09:14 Lab Results Blood Type / Crossmatch: No Data to Display Complete Blood Count: No Data to Display Complete Metabolic Panel: No Data to Display Liver Function Panel: No Data to Display Coagulation Panel: No Data to Display Cardiac Panel: No Data to Display Arterial Blood Gas: No Data to Display Venous Blood Gas: No Data to Display Pancreas Panel: No Data to Display Thyroid Panel: No Data to Display Infectious Disease: Coronavirus (COVID-19)(PCR) Negative (Negative) 08/06/21 10:42 08/06/21 Coronavirus 2019 Source Nasal/Nares 08/06/21 10:42 08/06/21 Blood Cultures: No Data to Display Toxicology Panel: No Data to Display Anesthesia Assessment and Plan Anesthesia History Personal History: No History of Anesthesia Complications Family History: No Family History of Anesthesia Complications Exercise Tolerance Exercise Tolerance: Metabolic Equivalents>4 Pertinent Negatives Pertinent Negatives: No Symptoms of GERD Cardiac & Pulmonary Exam Cardiac Exam: Normal S1/S2 Heart Sounds Pulmonary Exam: Clear Bilateral Breath Sounds Implantable Cardiac Device Does patient have a Pacemaker or an ICD?: No Airway Exam Known Difficult Airway: No Mallampati Class: 3 Mouth Opening: Normal (> 3cm) Thyromental Distance: Greater than 3 cm Neck Range of Motion: Full ROM Neck Circumference: Normal Teeth Condition: Generalized Poor Dentition Airway Comments: No loose teeth ASA Classification ASA Score: ASA 2 Emergency Case?: No NPO Status NPO Status: NPO Clears >2 hours, Solids >8 hours Anesthesia Plan Resuscitation Status: Full Code Anesthesia Technique: MAC Anesthesia Airway Planned: Natural Airway Monitors Used: Standard Monitors
[2021-08-09 09:48] VITALS: BMI 21.6
[2021-08-09] MEDS: Tetracaine 0.5% 4 ML BTL OS (10:29)
[2021-08-09] MEDS: Balanced Salt Soln.-PLUS 500 ML BAG (10:30)
[2021-08-09] MEDS: Duovisc Viscoelastic System EACH 1 EACH (10:30)
[2021-08-09] MEDS: Lidocaine 2% Jelly 6 ML SYR (10:31)
[2021-08-09] MEDS: Povidone-Iodine Ophth 30 ML BTL (10:32)
[2021-08-09 10:49] VITALS: BP 130/70; PULSE 52; RESP 16; TEMP 36.1; O2SAT 99
--- NOTE | 2021-08-09 10:52 | PDOC.DSDIS_ITS ---
Discharge Plan Disposition Patient Disposition: HOME Condition: Good Discharge Details Attending Provider: Forrest Limon Primary Care Provider: Elliot Gavin [place] Meds and New Rx's Prescriptions: No Action metoprolol succinate 50 mg Tablet Extended Release 24 Hr 50 mg PO DAILY RF: 0 amlodipine 5 mg Tablet 5 mg PO DAILY RF: 0 tamsulosin 0.4 mg Capsule 0.4 mg PO DAILY RF: 0 lisinopril 40 mg Tablet 40 mg PO DAILY RF: 0 fluticasone propionate 50 mcg/actuation [place],Suspension 2 spray INTRANASAL QAM RF: 0 aspirin 81 mg Tablet 81 mg PO DAILY RF: 0 Discharge Instructions Stand Alone Forms: Post-op Topical Cataract, Karla Orozco (DSU) Discharge Orders Discharge Orders: Discharge Order (Routine); Ordered 08/09/21 Ordered By: Forrest Limon DS: Diagnosis Discharge Diagnosis (1) Cortical cataract of left eye: Status: Resolved (2) Nuclear sclerotic cataract of left eye: Status: Resolved
--- NOTE | 2021-08-09 10:53 | W.PM.OP ---
Date of service: 08/09/21 Time of Service: 10:53 Operative Note Operative Note DATE OF PROCEDURE: 08/09/21 PRE-OP DIAGNOSIS: Nuclear/cortical cataract, left eye POST-OP DIAGNOSIS: same PROCEDURE: Cataract extraction using phacoemulsification with intraocular lens implant, left eye SURGEON: Forrest Limon ANESTHESIA TYPE: Local By Surgeon and MAC Refer to Anesthesia Record PATHOLOGY: none sent COMPLICATIONS: None Patient was transported to: same day Patient's condition: stable Implants: [employer] / [employer] Tecnis [id number] Indications: Progressive decreased vision due to cataract, left eye Procedure Description: CATARACT SURGERY OPERATIVE REPORT PREOPERATIVE DIAGNOSIS: 1. Nuclear/cortical cataract, left eye POSTOPERATIVE DIAGNOSIS: Same OPERATION: 1. Cataract extraction using phacoemulsification with posterior chamber intraocular lens implant, left eye. IOL: IOL Parasitologist/Model: [employer] Chad / DARRYL Tecnis [id number] IOL Power: + 10.0 diopters IOL Serial Number: [id number] Optic Diameter: 6.0 mm Haptic/Overall Diameter: 13.0 mm PHACO INFO: [employer] Vision System with OZil and [employer] Cumulative Dispersed Energy (CDE): 8.74 seconds SURGEON: Forrest Limon MD, COLT ANESTHESIA: Monitored A [facility] (MAC), with local sub-tenon's anesthetic infiltration COMPLICATIONS: None SPECIMENS: None INDICATIONS FOR PROCEDURE: The patient is an 81-year-old gentleman with history of diminished visual acuity in both eyes secondary to the development of bilateral cataract. He has already undergone cataract surgery in the right eye and is doing well postoperatively. He now presents for cataract surgery in the left eye. PROCEDURE: The correct surgical eye was identified and marked as the left eye and the pupil was dilated in the preoperative area using mydriatics and cycloplegics. The dilated pupil size was 8.0 mm. He elected to proceed without oral sedation.. The patient was brought to the operating room where cardiopulmonary monitoring was instituted and surgical time-out was performed, confirming the correct operative eye and IOL power. Topical anesthesia was administered and ophthalmic povidone-iodine 5% was instilled into the conjunctival fornices. Lidocaine gel was applied to the cornea and the tram-ocular area was prepped with Betadine 10% solution and draped in the usual sterile fashion for intraocular surgery, including an aperture drape. A Tegaderm transparent film dressing was cut in half and used to cover the lashes and lid margins. Care was taken to sequester the lashes and lid margins under the Tegaderm dressing. A lid speculum was placed between the lids of the operative eye and the Charles-Sudhir operating microscope was maneuvered into position. Valeriano scissors were then used to make a conjunctival buttonhole approximately 6mm posterior to the limbus in the inferonasal quadrant. Blunt dissection was carried out to expose bare sclera, and a blunt-tipped sub-tenon?s anesthesia cannula was introduced and passed posteriorly along the globe where non-preserved plain lidocaine was injected into posterior sub-Tenon?s space. A sideport knife was used to make a paracentesis port superiorly/superiortemporally. Intraocular phenylephrine/lidocaine was injected int the anterior chamber.. The anterior chamber was filled with viscoelastic. A 2.4mm keratome knife was used to create a half-thickness groove at the limbus and then to construct a three-plane near-clear corneal tunnel extending 2.0mm into clear cornea at the 3:00 position. A flap was raised on the anterior capsule and capsulorhexis forceps were used to complete a continuous curvilinear capsulorhexis of 5.0 mm. Balanced salt solution was then used to perform cortical cleaving hydrodissection and nuclear hydrodelineation until the lens could be freely rotated within the capsular bag. The lens nucleus was then disassembled and removed within the capsular bag and iris plane using phacoemulsification. Residual cortical material was removed using the 45-degree angled silicone I/A tip with 0.3mm port. The posterior capsule was carefully polished to remove as much residual lens epithelial cells as safely possible. The capsular bag was then inflated and the anterior chamber deepened with viscoelastic. The lens implant described above was inserted into the capsular bag using the DARRYL [place] Injector. A Kuglen hook was used to dial the IOL into position. Residual viscoelastic was then removed first from posterior to the IOL, then from the anterior chamber using the I/A handpiece. The lens implant was noted to center nicely within the capsular bag. The incisions were stromally hydrated, and the anterior chamber was reformed using BSS. Then 0.5cc of moxifloxacin 1.0mg/ml were injected into the capsular bag and anterior chamber. The incisions were checked with a Weck spear and found to be secure. Several drops of ophthalmic povidone-iodine 5% were then applied to the eye followed by two drops of Imprimis combination prednisolone/moxifloxacin/nepafenac solution. The drapes were removed and a clear plastic protective eye shield was placed over the eye. The patient was then returned to Same Day Surgery in stable condition.
--- NOTE | 2021-08-09 10:56 | W.ANESPOSTOP ---
Postoperative Evaluation Date, Time and Location Date Performed: 08/09/21 Time Performed: 10:56 Patient Location: Day Surgery Unit Vital Signs Most Recent Imported Vital Signs: Most Recent Vital Signs Temp Pulse Resp BP Pulse Ox 36.5 C 47 L 16 139/86 99 08/09/21 09:14 08/09/21 09:14 08/09/21 09:14 08/09/21 09:14 08/09/21 09:14 Pain Score Most Recent Pain Score: Most Recent Pain Score Pain Level 0 08/09/21 09:14 Assessment Mental Status: Awake (Alert & Oriented to Patient Baseline) Airway and Respiratory Function: Patent airway with normal (patient baseline) respiratory exam Cardiovascular Function: Hemodynamically Stable Hydration Status: Adequately Hydrated Nausea & Vomiting: No Nausea or Vomiting Pain: Pt. Denies Any Pain Peripheral Nerve Block: Patient did not receive a nerve block
== END 2021-08-09 11:09 | disposition home or self-care (01) ==
PROVIDERS: PCP Neuromusculoskeletal Medicine & OMM; Visit Provider Ophthalmology
PROC: (CPT 66984; principal; 2021-08-09 11:30)
DX: H25.12 Age-related nuclear cataract, left eye (principal); I10 Essential (primary) hypertension; N40.0 Benign prostatic hyperplasia without lower urinary tract symptoms
CPT/HCPCS: 66984; V2632